=== PATIENT | male | born 1990 | race Caucasian/White ===

== ENCOUNTER 2021-10-19 10:03 | Outpatient (CLI) | payer OTHER ==
[2021-10-19 10:43] VITALS: BP 137/100
--- NOTE | 2021-10-19 10:43 | SLEEP CARE CONSULTATION ---
Information from patient questionnaire entered by Jonathan Springer MA. I have reviewed and concur with the information entered by Jonathan Springer MA. This document represents the service I personally performed and the decisions made by me, Casey Smith MD, [facility]. History of Present Illness Service Date and Time: 10/19/2021 1003 Reason for Visit: New patient (ONSET 05/02/2016, ) Chief Complaint: reports: Insomnia, Unrefreshed sleep, Snoring, Excessive daytime sleepiness, Observed pauses in breathing, Fatigue, Frequent awakenings at night, Other Date of Onset: 7 YEARS Usual bedtime: 11 - 1130 PM Time it takes to fall asleep: 2-3 HOURS Snores at night: Yes Observed to quit breathing while asleep: Yes Sleeps alone due to snoring: Yes Number of times waking at night: 5-10 X Reasons for waking at night: reports: Other Toss, Turn, or Twitch while sleeping: Yes Recalls having dreams: Yes Usually gets out of bed at: 0630 Feels refreshed in the morning: No Morning headache: No Sleepy or fatigued during the day: Yes Ever fallen asleep while driving: No Takes day naps: Yes Dreams during day naps: Yes Prior sleep studies: No Additional HPI information: I had the pleasure of seeing Mr. Draper today regarding the possibility of him having a sleep disorder. As you know, he is a 31-year-old gentleman who complains of insomnia, loud snore, observed apneas, unrefreshed sleep, pers istent fatigue, and excessive daytime sleepiness for about 7 years. The patient tells me that he normally goes to bed around 11 11:30 pm, and it takes him approximately 2 - 3 hours to fall asleep. He has been told that he snores loudly and irregularly at night. He has also been observed to stop breathing in his sleep. He can recall waking up on the average of 5 - 10 times during the night. Most of the time he wakes up because of no apparent reason. He has awakened occasionally because of his own snoring, choking, and having to gasp for air. There is a lot of tossing and turning in his sleep. No somniloquy (sleep talking) or somnambulism (sleep walking). He can recall having dreams. there is no recollection of dreams. In the morning he usually gets up out of the bed around 6:30 a.m. not feeling refreshed nor rested. He usually does not have a morning headache. During the day he complains of feeling sleepy and fatigued. His score on [place] Sleepiness Scale is 22 out of 24. He never has fallen asleep while driving nor has had any accident due to sleepiness. He usually takes naps during the day. He reports having had sleep paralysis and restless leg syndrome. He reports having impaired concentration during the day. 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 Patient is and lives in [place]. Have you smoked in the past 12 months: No Quit date: 6 YEARS AGO Alcohol use: Yes Alcohol amount and frequency: 1-2 X WEEKLY Caffeine use: Yes Caffeine amount and frequency: 1 X DAILY Family History Family history of sleep disordered breathing: Yes Family Hx Sleep Apnea: Mother: Snoring, Sleep apnea - Treated, Father: Snoring, Sleep apnea - Treated Allergies and Home Medications Known drug allergies: Yes (SEE LIST) Drug allergies reviewed: Yes (venlafaxine) Home medication list reviewed: Yes (ibuprofen) Allergy and home medication list: Allergies No Known Drug Allergies Allergy (Verified 11/23/15 19:58) Review of Systems Review of systems same as previous: Yes (GASTRO SCOPE SURGERY - TUESDAY, ) Cardiovascular: denies: high blood pressure, palpitations, chest pain, irregular heart rate or pulse, leg or foot swelling, have to sleep sitting up, other Respiratory: denies: shortness of breath, wheeze, sputum production, chronic cough, other Gastrointestinal: reports: nausea, diarrhea, abdominal pain Urinary: denies: incontinence, frequency, urgency, impotence, other Neurological: denies: headaches, seizure, head trauma, disorientation, speech dysfunction, gait or balance problems, fainting or unconsciousness, other Psychiatric: reports: Attention Deficit Hyperactivity, anxiety, depression Ear/Nose/Throat: denies: nasal congestion, sinus problems, nose bleeds, dry mouth/throat, hoarseness, injury to nose, tonsillectomy, wisdom teeth removed, other Endocrine: denies: thyroid disease, history of goiter, sluggishness, too hot or cold, excessive thirst, increased appetite, increased urination, unexplained weakness, other Musculoskeletal: reports: joint pain, mobility problems Physical Exam Vital signs obtained and entered by: Martha SPRINGER CMA [facility] Blood Pressure: 137/100 (RESP 20, PULSE 60, LEFT) Heart Rate: 62 O2 Saturation: 98 (PAPER MASK) Height: 5 ft 10 in Weight: 215 lb (CLOTHES) Body Mass Index: 30.8 BMI Classification: Obese Neck circumference: 14.5 (INCHES) Mood/affect: normal HEENT: No craniofacial malformation Nostrils: patent to airflow Turbinates: normal Septum: midline Mouth and throat: normal Soft palate: normal Hard palate: normal Uvula: normal Uvula visualization: 100% Mallampati Class I Tongue: normal in size Tonsils: small Chin and jaw: normal size and position Neck: normal w/o lymphadenopathy or thyromegaly Heart: regular rate and rhythm Lungs: clear bilaterally Abdomen: soft, non-tender Extremities: no edema or clubbing Neurologic: intact, no focal deficits Impression and Plan IMPRESSION: 1. Obstructive Sleep Apnea-Hypopnea Syndrome, as suggested by history of loud and irregular snoring, observed cessation of breath while asleep, frequent awakenings during the night, unrefreshed sleep, cognitive impairment, and daytime hypersomnolence. I recommend proceeding to polysomnography to confirm the diagnosis and to assess severity. If he has significant sleep disordered breathing, a manual CPAP titration study will also be performed to find the optimal treatment pressure. I informed the patient of what the sleep studies involve and after some discussion, he agreed to proceed. Plan: 1. Schedule polysomnography + manual CPAP titration study and return in 1 to 2 weeks after the study to discuss result and initiate therapy. 2. Avoid long distance driving or when feeling sleepy. 3. Avoid alcohol, sedative and muscle relaxant around bedtime. 4. Attempt to lose some weight. Follow up with Sleep Care in: 1-2 months Visit Type: In Office Time Spent with Patient (minutes): 15 Provider Statement: I spent 100% of the Face to Face Visit with the patient with greater than 50% spent counseling the patient and coordination of care.
== END 2021-10-19 10:04 | disposition home or self-care (01) ==
LOC: SC 10:03
PROVIDERS: ATTEND Internal Medicine Pulmonary Disease
DX: R06.83 Snoring (principal); R06.81 Apnea, not elsewhere classified; G47.10 Hypersomnia, unspecified; G47.8 Other sleep disorders; E66.9 Obesity, unspecified; Z68.30 Body mass index [BMI] 30.0-30.9, adult; Z87.891 Personal history of nicotine dependence
CPT/HCPCS: 99202; 99212

== ENCOUNTER 2021-11-30 13:46 | Outpatient (CLI) | payer OTHER ==
[2021-11-30 14:08] VITALS: BP 136/87
--- NOTE | 2021-11-30 14:08 | SLEEP CARE CONSULTATION ---
Information from patient questionnaire entered by Jonathan Springer MA. I have reviewed and concur with the information entered by Jonathan Springer MA. This document represents the service I personally performed and the decisions made by me, Casey Smith MD, [facility]. History of Present Illness Service Date and Time: 11/30/2021 1346 Initial [place] Sleepiness Scale score: 22 (10/19/2021) Current [place] Sleepiness Scale score: 19 (11/30/2021) Additional HPI information: Mr. Draper returned with his for follow up of the sleep study he had on 11/06/2021. The polysomnography showed that the patient had normal sleep efficiency. The sleep architecture was abnormal for sleep fragmentation and reduced amount of time spent in slow wave sleep (N3). Respiratory monitoring showed mild obstructive sleep apnea-hypopnea (AHI = 13.2) associated with frequent arousals, oxyhemoglobin desaturation and mild hypoxia (timmy oxygen saturation of 87%). The respiratory events occurred almost exclusively during supine sleep (supine AHI = 15.3; non-supine = 3.31). Snore was moderate in intensity. There was severe periodic leg movement of sleep contributing to the sleep fragmentation. Cardiac rhythm was normal sinus rhythm without significant arrhythmia. No abnormal behavior (parasomnia) observed during the night. The patient was informed of these findings. I explained to him the pathophys iology behind obstructive sleep apnea. We then spent quite a bit of time discussing different treatment options. For mild obstructive sleep apnea, surgery and oral appliance are alternatives to nasal CPAP therapy but in moderate or severe cases, nasal CPAP is the most effective and reliable treatment. Weight loss in an obese individual is strongly recommended. After some discussion, he opted to go with the nasal CPAP therapy. I explained to him how CPAP machine works and what to expect when using the machine. He is encouraged to use CPAP every night especially in the first 2 to 3 nights in order to get used to it. He should call his CPAP supplier or me to discuss any mechanical problem that may occur. If he snores or feels like he is not getting enough air from the machine, he should notify me and I will increase the pressure. Sleep Study - Results Type of Sleep Study: Polysomnography (F/U POLY, , POS,) Prior sleep studies: No Allergies and Home Medications Known drug allergies: No (NKA) Drug allergies reviewed: Yes Home medication list reviewed: Yes Allergy and home medication list: Allergies No Known Drug Allergies Allergy (Verified 11/23/15 19:58) Review of Systems Review of systems same as previous: Yes (GERD) Physical Exam Vital signs obtained and entered by: MARTELL PULIDO Blood Pressure: 136/87 (RESP 18, PULSE 68, LEFT ) Cuff size: wrist Heart Rate: 74 O2 Saturation: 98 (CLOTH MASK) Height: 5 ft 10 in Weight: 210 lb (CLOTHES) Weight change since last visit: GYM, PORTIONS Body Mass Index: 30.1 BMI Classification: Obese Impression and Plan IMPRESSION: 1. Obstructive Sleep Apnea-Hypopnea Syndrome, mild, associated with mild hypoxemia and sleep fragmentation. Possibly, this is the cause of the patients symptoms of unrefreshed sleep, and excessive daytime sleepiness. As mentioned above, the patient will be started on an autoCPAP set empirically between 5 and 15 cmH2O. Depending on his response and compliance he may be brought back for an overnight CPAP titration study. PLAN: 1. Prescription made for an autoCPAP, heated humidifier, and related supplies. 2. Attempt to lose weight and avoid alcohol consumption near bedtime. 3. Avoid sleeping supine if not using CPAP. 4. Return in one month for follow up. I will assess his response and compliance at that time. Prescriptions: Auto CPAP Follow up with Sleep Care in: 1-2 months Visit Type: In Office Other Participants: Spouse/Significant Other Time Spent with Patient (minutes): 20 Provider Statement: I spent 100% of the Face to Face Visit with the patient with greater than 50% spent counseling the patient and coordination of care.
== END 2021-11-30 13:47 | disposition home or self-care (01) ==
LOC: SC 13:46
PROVIDERS: ATTEND Internal Medicine Pulmonary Disease
DX: G47.33 Obstructive sleep apnea (adult) (pediatric) (principal); E66.9 Obesity, unspecified; Z68.30 Body mass index [BMI] 30.0-30.9, adult
CPT/HCPCS: 99212; 99213